=== PATIENT | male | born 1980 | race Caucasian/White ===

== ENCOUNTER 2022-06-22 00:54 | Emergency (ER) | payer OTHER ==
[~2022-06-22] VITALS: Ht 195.6 cm; Wt 86.2 kg
[~2022-06-22 00:54] MED LIST: CYCL10 PO; IBU600 MG PO; LIDO700A20 TOP
[2022-06-22] MEDS ORDERED: Robaxin750 MG PO ×2 (02:40→02:41)
[2022-06-22] MEDS ORDERED: IBUP600 PO ×2 (02:40→02:41)
== END 2022-06-22 02:47 | disposition home or self-care (01) ==
LOC: ER 00:54
DX: M43.6 Torticollis (principal); F17.210 Nicotine dependence, cigarettes, uncomplicated
CPT/HCPCS: 96372; 99283-25; A9270; J1885

== ENCOUNTER 2023-09-06 16:47 | Emergency (ER) | payer OTHER ==
[~2023-09-06] VITALS: Ht 195.6 cm; Wt 86.6 kg
[~2023-09-06 16:47] MED LIST changes: +IBUP600 PO; +METPHE10 PO; +Robaxin750 MG PO
[2023-09-06 17:10] VITALS: BP 135/81
[2023-09-06] MEDS ORDERED: METPHE10 PO ×2 (17:13→17:18)
== END 2023-09-06 17:10 | disposition home or self-care (01) ==
LOC: ER 16:47
DX: Z76.0 Encounter for issue of repeat prescription (principal); F17.210 Nicotine dependence, cigarettes, uncomplicated; Z79.899 Other long term (current) drug therapy
CPT/HCPCS: 99281

== ENCOUNTER 2023-09-12 15:14 | Emergency (ER) | payer OTHER ==
[~2023-09-12] VITALS: Ht 195.6 cm; Wt 85.7 kg
[2023-09-12 15:28] VITALS: BP 126/74
[2023-09-12] MEDS ORDERED: AMOCLA875 PO (15:31)
== END 2023-09-12 15:31 | disposition home or self-care (01) ==
LOC: ER 15:14
DX: H66.92 Otitis media, unspecified, left ear (principal); F17.210 Nicotine dependence, cigarettes, uncomplicated; Z79.899 Other long term (current) drug therapy; Z88.5 Allergy status to narcotic agent
CPT/HCPCS: 99282